=== PATIENT | male | born 1960 | race Caucasian/White ===

== ENCOUNTER 2024-08-02 06:31 | Day surgery (SDC) | payer MEDICARE, BC ==
[2024-08-02] MEDS: Lactated Ringers 1,000 ML IV SCH (06:53)
[2024-08-02] MEDS ORDERED: fentaNYL 50 MCG/ML SDV ONE (06:54)
[2024-08-02] MEDS ORDERED: Midazolam 1 MG/ML 2 ML SDV ONE (06:54)
[2024-08-02] MEDS ORDERED: Propofol 200 MG/20 ML SDV ONE ×3 (06:54→08:46)
== END 2024-08-02 10:15 | disposition home or self-care (01) ==
LOC: JP.SDS 06:31
PROVIDERS: ATTEND Family Medicine
DX: Z12.11 Encounter for screening for malignant neoplasm of colon (principal); R19.5 Other fecal abnormalities; I10 Essential (primary) hypertension; E11.9 Type 2 diabetes mellitus without complications; Z98.84 Bariatric surgery status; Z88.8 Allergy status to other drugs, medicaments and biological substances
CPT/HCPCS: 00812-QZ; 93005; 93010; G0121; J2250; J2704; J3010; J7120